=== PATIENT | female | born 1970 | race Caucasian/White ===

== ENCOUNTER 2017-01-20 18:02 | Emergency (ER) | payer BC ==
[2017-01-20 18:12] VITALS: BP 102/60
[2017-01-20] MEDS ORDERED: Tetan/Diph/Pertus SYR(Tdap)* 0.5 ML SYR(BOOSTRIX) use SYR IM ONE (18:14)
[2017-01-20] MEDS ORDERED: Lidocaine 1% MPF* 2 ML VIAL INJ ONE (18:16)
--- NOTE | 2017-01-20 18:18 | UC ---
Laceration HPI - HPI Summary HPI Summary: 46 y/o female presents to the urgent care c/o Rt thumb laceration with a can lid around 1700 today. Pt reports she is volunteering at a [employer] and she was going to prepare a soup and she cut her thumb with the can lid. Pt states bleeding stopped with pressure. She can't recall when was the last tetanus shot. Pain is 2/10 and she can move thumb w/o any difficulty. Pt denies numbness or tinglin, fever, SOB, chest pain, N/V/D - History Of Current Complaint Chief Complaint: UCLaceration Stated Complaint: THUMB LACERATION Time Seen by Provider: 01/20/17 18:09 Hx Obtained From: Patient Hx Last Menstrual Period: 12/11/16 Laceration Location: Finger - Rt thumb Mechanism Of Injury: Sharp Trauma Onset/Duration: Sudden Onset, Lasting Hours - 2 hrs, Still Present Severity: Mild Pain Intensity: 2 Pain Scale Used: 0-10 Numeric Aggravating Factors: Movement Related History: Dominant Hand Right - Allergies/Home Medications Allergies/Adverse Reactions: Allergies Allergy/AdvReac Type Severity Reaction Status Date / Time No Known Allergies Allergy Verified 01/20/17 18:03 PMH/Surg Hx/FS Hx/Imm Hx Previously Healthy: Yes - P{t deneis PMHX Other History Of: Anticoagulant Therapy - OFF FOR 1 WK, LOVENOX - Surgical History Surgical History: Yes Surgery Procedure, Year, and Place: GALLBLADDER, APPENDIX, RUPTURED BOWEL 2+ YRS AGO, pelvis fx kidney stone - Family History Known Family History: Positive: Hypertension - Social History Occupation: Employed Full-time Lives: With Family Alcohol Use: Occasionally Substance Use Type: None Smoking Status (MU): Never Smoked Tobacco - Immunization History Hx Tetanus, Diphtheria Vaccination: No - can't recall Review of Systems Constitutional: Negative Skin: Other - laceration to the Rt thumb Eyes: Negative ENT: Negative Respiratory: Negative Cardiovascular: Negative Gastrointestinal: Negative Genitourinary: Negative Motor: Negative Neurovascular: Negative Musculoskeletal: Negative Neurological: Negative Psychological: Negative Is Patient Immunocompromised?: No All Other Systems Reviewed And Are Negative: Yes Physical Exam Triage Information Reviewed: Yes Vital Signs: Initial Vital Signs Temp 97.3 F 01/20/17 18:08 Pulse 71 01/20/17 18:08 Resp 16 01/20/17 18:08 BP 102/60 01/20/17 18:08 Pulse Ox 100 01/20/17 18:08 - Additional Comments Vital Signs Reviewed: Yes General: well developed, well nourished female sitting in the examining table w/ o any apparent distress Eye Exam: Normal Eyes: Positive: Conjunctiva Clear - PERRLA, EOMI, fundi grossly normal ENT: Positive: Normal ENT inspection, Hearing grossly normal, Pharynx normal, TMs normal Neck: Positive: Supple, Nontender, No Lymphadenopathy Respiratory: Positive: Chest non-tender, Lungs clear, Normal breath sounds, No respiratory distress Cardiovascular: Positive: RRR, No Murmur, Pulses Normal, Brisk Capillary Refill Abdomen Description: Positive: Nontender, No Organomegaly, Soft. Negative: CVA Tenderness (R), CVA Tenderness (L) Bowel Sounds: Positive: Present Musculoskeletal: Positive: Strength Intact, ROM Intact, No Edema Neurological: Positive: Alert, Muscle Tone Normal Psychological Exam: Normal Skin: Positive:palmar side of the first RT phalanx with superficial linear laceration just below the PIPJ about 1cm in size. bleeding stopped after irrigation and pressure, no foreign body observed. mild tenderness to palpation , FROM of all fingers and hand, sensation intact, capillary refill brisk, and pulses WNL. Laceration Repair - Laceration Repair 1 Description: Linear : No Repair Necessary Laceration Size After Repair: Length (cm) - 1.0 cm Modified For Repair: No Cleansing Completed Via Routine Prep: Yes Irrigation With Pressure Irrigation Device: Yes Closure Material: SteriStrips - 4 applied Closure Method: Single Layer Suture Of: Skin Laceration Course/Dx - Course/Dx Course Of Treatment: 46 y/o female presents to the urgent care c/o Rt thumb laceration with a can lid around 1700 today. Pt reports she is volunteering at a [employer] and she was going to prepare a soup and she cut her thumb with the can lid. Pt states bleeding stopped with pressure. She can't recall when was the last tetanus shot. Pain is 2/10 and she can move thumb w/o any difficulty. Pt denies numbness or tinglin, fever, SOB, chest pain, N/V/D. Hx obtained. palmar side of the first RT phalanx with superficial linear laceration just below the PIPJ about 1cm in size. .LACERATION PROCEDURE NOTE: . Copious irrigation was done with saline by the nurse and the wound explored. There was no FB or deep structure injury noted very superficial. FROM of Rt thumb. procedure was explained and consent obtained, Timeout performed.Sterile drape and prep were done. Pt decline sutures. There were 4 sutures steri strips applied over laceration. No debridement done. sterile nonadherent tube dressing placed . The Pt tolerated the procedure well without adverse effects. Neurovascular intact and FROM. Tdap ordered and applied by nurse. Pt advised if any signs of infection develop to immediately return to the urgent care of PCP for further management and treatment. Pt understood and agreed and left the clinic ambulating A&Ox3. - Differential Dx - Laceration/Wound Differental Diagnoses: Abrasion, Dehiscence, Laceration, Puncture Wound, Tendon Laceration Provider Diagnoses: 1- RT #1 phalanx laceration repair Discharge - Discharge Plan Condition: Stable Disposition: HOME Prescriptions: Bacitracin OINTMENT* 1 applic TOPICAL TID #1 tube Patient Education Materials: Acute Wound Care (ED), Skin Adhesive Care (ED) Referrals: Juan José Cartagena MD [Primary Care Provider] - 3 Days Additional Instructions: 1-Please apply topical antibiotic over the wound. after steri-strips come off. Keep wound clean and dry 2-Take Ibuprofen or Tylenol PO q6-8hrs prn for pain or swelling. 3- If you develop fever or redness around your finger please return to the Urgent care or f/u with your PCP for further treatment.
[2017-01-20] MEDS ORDERED: Benzoin Compound STICK ONE (18:37)
== END 2017-01-20 19:10 | disposition home or self-care (01) ==
LOC: UCEAST 18:02
DX: S61.011A Laceration without foreign body of right thumb without damage to nail, initial encounter (principal); W26.8XXA Contact with other sharp object(s), not elsewhere classified, initial encounter; Y93.G1 Activity, food preparation and clean up; Y92.129 Unspecified place in nursing home as the place of occurrence of the external cause; Y99.2 Volunteer activity; Z23 Encounter for immunization; Z90.49 Acquired absence of other specified parts of digestive tract; Z87.442 Personal history of urinary calculi
CPT/HCPCS: 12001; 90715; 99212; G0463